=== PATIENT | female | born 1955 | race Caucasian/White ===

== ENCOUNTER 2025-06-10 11:12 | Outpatient (CLI) | payer OTHER ==
--- NOTE | 2025-06-10 15:19 | RADIOLOGY REPORT ---
CLINICAL HISTORY: PAIN IN RIGHT FINGER(S). TECHNIQUE: Multi sequence multi planar MRI images of the right hand were obtained without contrast. Imaging was focused on the area of clinical concern involving the fingers. COMPARISON: None FINDINGS: No acute fracture or focal marrow contusion. Lobulated intraosseous lesion in the distal aspect of the 2nd metacarpal near the 2nd metacarpal neck measures up to 0.8 cm in greatest dimension, suspected enchondroma with areas of likely calcification. Moderate joint space narrowing involving the DIP joints of the 2nd through 5th digits with areas of mild subchondral cystic change. Mild subchondral cystic change at the PIP joint of the 3rd digit. Moderate joint space narrowing and minimal subchondral edema adjacent to the 1st digit MCP joint. Mild subchondral cystic change at the 3rd metacarpal head. Small effusion at the 3rd digit PIP joint. Flexor and extensor tendons are intact without evidence of tear. Mild tenosynovitis of the 4th digit flexor tendon near the level of the distal aspect of the proximal phalanx. No significant ligamentous abnormality identified. IMPRESSION: 1. No evidence of acute bony abnormality. 2. Arthritic changes as described above. 3. 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 Correlation with clinical findings and radiographs recommended. 4. Mild tenosynovitis of the 4th digit flexor tendon as it courses near the level of the distal aspect of the proximal phalanx. 5. Small effusion at the 3rd digit PIP joint. 6. Additional findings as described above.
== END 2025-06-10 23:59 | disposition home or self-care (01) ==
LOC: MRI02 11:12
PROVIDERS: ATTEND Physician Assistant
DX: M19.041 Primary osteoarthritis, right hand (principal); M79.644 Pain in right finger(s)
CPT/HCPCS: 73218